=== PATIENT | female | born 1975 | race Caucasian/White ===

== ENCOUNTER 2022-06-13 15:24 | Inpatient (IN) ==
[2022-06-13 16:15] LABS: Basophils # (auto) 0.07 K/uL (0-0.2); Basophils % (auto) 0.7 %; Eosinophils # (auto) 0.26 K/uL (0-0.50); Eosinophils % (auto) 2.7 %; Hematocrit (blood only) 42.5 % (34.1-44.9); Hemoglobin 13.8 g/dl (12.0-16.0); Immature Granulocytes # (auto) 0.03 K/uL (0.00-0.02); Immature Granulocytes % (auto) 0.3 %; Lymphocytes # (auto) 2.79 K/uL (1.2-3.4); Lymphocytes % (auto) 29.4 %; Mean Corpuscular Hemoglobin 27.8 pg (25.0-34.0); Mean Corpuscular Hgb Conc 32.5 g/dL (32.0-36.0); Mean Corpuscular Volume 85.5 fL (80.0-100.0); Mean Platelet Volume 9.8 fL (9.4-12.3); Monocytes # (auto) 0.62 K/uL (0.24-0.82); Monocytes % (auto) 6.5 %; Neutrophils # (auto) 5.71 K/uL (1.4-6.5); Neutrophils % (auto) 60.4 %; Platelet Count 299 K/uL (130-400); RDW Coefficient of Variation 13.7 % (11.5-14.5); RDW Standard Deviation 42.5 fL (36.4-46.3); Red Blood Count 4.97 M/uL (3.93-5.22); White Blood Count 9.48 K/ul (4.8-10.8)
[2022-06-13 16:24] LABS: Appearance Urine Clear (Clear); Bilirubin Urine Negative (Negative); Blood Urine Negative (Negative); Color Urine Yellow; Glucose Urine UA Negative (Negative); Ketones Urine Negative (Negative); Leukocyte Esterase Urine Negative (Negative); Nitrite Urine Negative (Negative); Protein Urine Negative (Negative); Specific Gravity Urine 1.018 (1.000-1.030); Urobilinogen Urine Negative (Negative); pH Urine 7.5 (4.5-7.5)
[2022-06-13 16:33] LABS: Albumin Globulin Ratio 1.7 (0.9-2); Albumin Level 4.7 gm/dl (3.4-5.0); BUN Creatinine Ratio 15.9 (10-20); Bilirubin,Total 0.4 mg/dl (0.2-1.0); Calcium 9.6 mg/dl (8.5-10.1); Creatinine Clr Calc Pharmacy 99.7 ml/min; Est GFR (African American) 121.8 ml/min; Est GFR (Non-African American) 105.1 ml/min; Globulin 2.8 gm/dl (2.5-4.0); Potassium 3.4 mmol/L (3.5-5.1); Total Protein 7.5 gm/dl (6.0-8.3)
--- NOTE | 2022-06-13 17:00 | History & Physical Report ---
Date of Service June 13, 2022 Assessment & Plan (1) Appendicitis: Plan: This is a 47y F who was sent to the [facility] ED as referred by Dr. Noriega office with [facility] general surgery for abdominal pain. Patient has a history of acute appendicitis with aborted procedure due to inability to readily identify the appendix. She has been on abx since 05/16 without any meaningful improvement in her symptoms--> mostly RLQ pain with nausea/vomiting. Full history of events as noted above. Today in the ER WBC 9. Vitals are stable. Abdomen soft, non distended, with TTP in supra pubic and RLQ regions. Prior laparoscopic sites well healed without signs of infection. ER has ordered a repeat CT a/p for further evaluation. Regardless due to symptoms we will admit the patient for supportive care and give her some IV zosyn. Will consider proceeding with laparoscopic vs open appendectomy tomorrow. Okay for clears and NPO at midnight. History of Present Illness Primary Care Provider: Varinder Yusuf MD This is a 47y F who was sent to the [facility] ED as referred by Dr. Noriega office with [facility] general surgery for abdominal pain. The patient has a significant recent history of appendicitis found via CT scan ER at [place] 3 weeks ago. She was taken to the OR but the case was aborted due to intraop findings ?abscess vs unable to identify appendix? (we do not have op report at this time). She did not have any surgical drains in post operatively. She was subsequently transferred to [facility] for higher level of care where they admitted her for IV abx over the course of a few days and was discharged on a course of PO augmentin. She then came to our ER on 05/22 due to ongoing pain and at that time CT scan some inflammation surrounding the appendix noting subacute appendicitis (no perf or abscess noted). At this time she did not have an elevated WBC # and her abdominal exam without concerning findings and she was instructed to continue abx and follow up with [facility]. She was ultimately set up to see Dr. Naik as an outpatient where recommendations made to continue course of abx, let inflammation settle down, and consider outpt C-scope prior to consideration of further surgical intervention. Unfortunately she returned to our ER on 06/06 for diarrheal symptoms where CT scan was obtained and showed improved findings surrounding her appendix without evidence of abscess. Her abx where switched from augmentin to cipro/flagyl. Few days later she states over this past weekend she developed 10/10 pain similar to when she initially presented to [facility] deferred going to the ER at that time. The acute pain did subside and she was able to make it to her second f/u appt with Dr. Naik today. After evaluating the patient as she is still having considerable amount of pain and not seeming to make much progress she was asked to return to the ER again for evaluation. Patient denies any fevers/chills. Says she has been eating/drinking okay, but with occasional nausea/vomiting (last emesis was a few days ago). Continues with diarrhea. Currently rates her pain a 5/10 and says she just wants to feel better. Allergies Allergy/AdvReac Type Severity Reaction Status Date / Time No Known Allergies Allergy Mild Verified 06/13/22 17:43 Home Medications Medication Instructions Recorded Confirmed Type ciprofloxacin HCl 500 mg tablet 500 mg PO BID #14 tabs 06/06/22 Rx (Cipro) metronidazole 500 mg tablet 500 mg PO TID #21 tabs 06/06/22 Rx clotrimazole 10 mg ashlee 10 mg PO TID 06/13/22 06/13/22 History escitalopram oxalate 5 mg tablet 5 mg PO DAILY 06/13/22 06/13/22 History fluconazole 150 mg tablet 150 mg PO DIRECTED 06/13/22 06/13/22 History ketorolac 10 mg tablet 10 mg PO QID PRN Pain 06/13/22 06/13/22 History levonorgestrel 20 mcg/24 hours (8 20 mcg intrauterine CONTINOUS 06/13/2206/13 History yrs) 52 mg intrauterine device (Mirena) omeprazole 40 mg capsule,delayed 40 mg PO DAILYBB 06/13/22 06/13/22 History release ondansetron HCl 4 mg tablet 4 mg PO Q8H PRN NAUSEA/VOMITING 06/13/22 06/13/22 History phentermine 30 mg capsule 30 mg PO QAM 06/13/22 06/13/22 History Past Med/Surg History Social History Smoking Status: Never smoker Preferred Language: Sami Feels Safe at Home: Yes Review of Systems Constitutional: no fever and no chills Respiratory: no dyspnea Cardiovascular: no chest pain Gastrointestinal: + abdominal pain (rlq), + bloating, + nausea and + vomiting Physical Exam Physical Exam: awake/alert, no distress Constitutional: well developed and well nourished; no acute distress Respiratory: normal respiratory effort Gastrointestinal (Abdomen): Inspection/Auscultation: + abdominal surgical scar (laparoscopic scars); abdomen not distended Percussion/Palpation: + abdomen tender (ttp in supra-pubic and RLQ regions) and abdomen soft Results & Data Results & Data ([facility]) Vital Signs (Past 12 Hours) Vital Signs Temp Pulse Resp BP Pulse Ox O2 Del Method 06/13/22 15:31 36.6 C 90 16 125/60 99 Room Air Supervising Physician Co-Signing Physician Notes Dr. Landeros is in no acute distress and does not need urgent or emergent operative intervention She does have chronic right lower quadrant pain from likely history of appendicitis with a failed attempted laparoscopic appendectomy Dr. Naik has been following her and she has persistent pain and he felt she should come to the emergency room and have us evaluate her I think the best care would be for her to likely be admitted to the hospital and undergo a laparoscopic possible open appendectomy Hopefully this can be done tomorrow If her CAT scan shows something entirely different we will address that PG Care Time/CCT Total # of Minutes Spent Total Time Spent with Patient: Total time spent is greater than 50% in coordination of care (as documented) at patient's floor/unit and/or counseling patient: Coding Level of Care Code 53009 Initial Inpt Care Lvl 2 Diagnoses Appendicitis K37
[2022-06-13] MEDS ORDERED: OPTIRAY 350 100ml IV ONE (17:25)
--- NOTE | 2022-06-13 17:39 | CT Scan Report ---
ABDOMEN AND PELVIS CT WITH IV CONTRAST CT DOSE: 340.85 mGy.cm HISTORY: rt sided abd pain, hx phlegmon appendix TECHNIQUE: Multiaxial CT images of the abdomen and pelvis were performed following the use of intrave nous contrast. A dose lowering technique was utilized adhering to the principles of ALARA. COMPARISON STUDY: Abdomen and pelvis CT 06/06/2022 FINDINGS: The lung bases are clear. No pneumoperitoneum. No pneumatosis. No fractures within the visu alized osseous structures. The liver, gallbladder, spleen, adrenal glands, pancreas, and kidneys are unremarkable. The main portal vein is patent. No retroperitoneal lymphadenopathy. An intrauterine dev ice is unchanged in position and remains low lying. Normal bladder.. There is a 3 cm left ovarian cys t. No evidence for bowel obstruction. Small to moderate amount well-formed stool seen throughout the colon. There is again noted an enhancing and thick-walled appendix within the right lower quadrant wi th mild surrounding fat stranding and mild ileocolic lymphadenopathy. The appendix measures up to 1 c m in diameter. The adjacent fat stranding has slightly progressed from the 06/06/2022 study but improv ed from the 05/22/2022 study. No extraluminal gas or abscess to suggest a perforation at this time IMPRESSION: 1. Redemonstration of the thick-walled appendix measuring up to 1 in diameter. The adjacent fat stran ding has slightly progressed from 06/06/2022 study but improved from the 05/22/2022 study. Again, the findings favor an acute to subacute appendicitis. No perforation or abscess identified this time. 2. No evidence for bowel obstruction. 3. An intrauterine device is unchanged in position and remains low lying. ACT 112: Negative or not required by law. Electronically signed by: Domingo Mireles M.D. 06/13/2022 5:38 PM
--- NOTE | 2022-06-13 17:52 | Emergency Department Note ---
History of Present Illness General Chief complaint: Abdominal Pain Stated complaint: TROUBLE WITH APPENDIX Time Seen by Provider: 06/13/22 16:03 History of Present Illness Maximum Pain Intensity: 5 47-year-old female presents to the ED with a chief complaint of right lower quadrant abdominal pain. The patient had appendicitis on 05/16/2022. She was evaluated at [facility] and had a laparoscopic surgery but the appendix was not removed at that time due to an abscess. She was subsequently transferred to [facility] for IV antibiotics. The patient was subsequently discharged. She has been on antibiotics since. She is currently on Cipro and Flagyl, she believes. She saw Dr. Johnny Naik today for a second visit and was referred here for further evaluation and either admission for appendectomy or IV antibiotics. No vomiting or diarrhea. No other complaints. Home Medications Medication Instructions Recorded Confirmed Type ciprofloxacin HCl 500 mg tablet 500 mg PO BID #14 tabs 06/06/22 06/13/22 Rx (Cipro) metronidazole 500 mg tablet 500 mg PO TID #21 tabs 06/06/22 06/13/22 Rx clotrimazole 10 mg ashlee 10 mg PO TID 06/13/22 06/13/22 History escitalopram oxalate 5 mg tablet 5 mg PO DAILY 06/13/22 06/13/22 History fluconazole 150 mg tablet 150 mg PO DIRECTED 06/13/22 06/13/22 History ketorolac 10 mg tablet 10 mg PO QID PRN Pain 06/13/22 06/13/22 History levonorgestrel 20 mcg/24 hours (8 20 mcg intrauterine CONTINOUS 06/13/22 06/13/22 History yrs) 52 mg intrauterine device (Mirena) omeprazole 40 mg capsule,delayed 40 mg PO DAILYBB 06/13/22 06/13/22 History release ondansetron HCl 4 mg tablet 4 mg PO Q8H PRN NAUSEA/VOMITING 06/13/22 06/13/22 History phentermine 30 mg capsule 30 mg PO QAM 06/13/22 06/13/22 History Allergies Allergy/AdvReac Type Severity Reaction Status Date / Time No Known Allergies Allergy Mild Verified 06/13/22 17:43 Past Med/Surg History Social History Smoking Status: Never smoker Preferred Language: Polish Feels Safe at Home: Yes Review of Systems A total of 10 systems reviewed and were otherwise negative Physical Exam Vital Signs Vital Signs - 24 hr 06/13/22 15:31 Temperature 36.6 C Temperature Source Temporal Artery Scan Pulse Rate 90 Respiratory Rate 16 Respiratory Depth Normal Blood Pressure 125/60 Blood Pressure Mean 81 Pulse Oximetry 99 Oxygen Delivery Method Room Air Sepsis Recent Fever Within 48 Hours No Sepsis New/Unexplained Change in Mental Status No Sepsis Action Taken by Nursing No Action Required CONSTITUTIONAL/VITAL SIGNS: Reviewed / noted above. GENERAL: Non-toxic in appearance. INTEGUMENTARY: Warm, dry, and [place]. HEAD: Normocephalic. EYES: without scleral icterus or trauma. ENT/OROPHARYNX: clear and moist. LYMPHADENOPATHY/NECK: Is supple without lymphadenopathy or meningismus. RESPIRATORY: Clear to auscultation bilaterally. No increased work of breathing. CARDIOVASCULAR: Regular rate and rhythm. GI/ABDOMEN: Soft and tender right lower quadrant no organomegaly or pulsatile mass. EXTREMITIES: Warm and well perfused. BACK: No CVA tenderness. NEUROLOGICAL: Intact without focal deficits. PSYCHIATRIC: normal affect. MUSCULOSKELETAL: Normally developed with good muscle tone. TRIAGE NURSING DOCUMENTATION REVIEWED. Course Administered Medications Discontinued Medications Ioversol (Optiray 350 100ml) 82 ml IV ONCE ONE Stop: 06/13/22 17:26 Last Admin: 06/13/22 17: Dose: 82 ml Documented By: EROS Medical Decision Making Differential Diagnosis Differential includes appendicitis, abscess, perforation, other. Medical Records Attestation: I reviewed the patient's medical records. Home Medications Current Medication List: was personally reviewed by me Laboratory Data Attestation: I reviewed the patient's lab results. Result diagrams: 06/13/22 16:05 06/13/22 16:05 Lab Results 06/13/22 06/13/22 06/13/22 Range/Units 16:05 16:05 16:05 WBC 9.48 (4.8-10.8) K/ul RBC 4.97 (3.93-5.22) M/uL Hgb 13.8 (12.0-16.0) g/dl Hct 42.5 (34.1-44.9) % MCV 85.5 (80.0-100.0) fL MCH 27.8 (25.0-34.0) pg MCHC 32.5 (32.0-36.0) g/dL RDW Std Deviation 42.5 (36.4-46.3) fL RDW Coeff of Sonido 13.7 (11.5-14.5) % Plt Count 299 (130-400) K/uL MPV 9.8 (9.4-12.3) fL Immature Gran % (Auto) 0.3 % Neut % (Auto) 60.4 % Lymph % (Auto) 29.4 % [place] % (Auto) 6.5 % Eos % (Auto) 2.7 % Baso % (Auto) 0.7 % Neut # (Auto) 5.71 (1.4-6.5) K/uL Lymph # (Auto) 2.79 (1.2-3.4) K/uL [place] # (Auto) 0.62 (0.24-0.82) K/uL Eos # (Auto) 0.26 (0-0.50) K/uL Baso # (Auto) 0.07 (0-0.2) K/uL Immature Gran # (Auto) 0.03 H (0.00-0.02) K/uL Sodium 138 (136-145) mmol/L Potassium 3.4 L (3.5-5.1) mmol/L Chloride 103 (98-107) mmol/L Carbon Dioxide 30 (21-32) mmol/L Anion Gap 5 (3-11) BUN 11 (6-23) mg/dl Creatinine 0.69 (0.6-1.2) mg/dl Est Cr Clr Drug Dosing 99.7 ml/min Est GFR ( Amer) 121.8 ml/min Est GFR (Non-Af Amer) 105.1 ml/min BUN/Creatinine Ratio 15.9 (10-20) Glucose 94 (70-99(Fasting)) mg/dl Calcium 9.6 (8.5-10.1) mg/dl Total Bilirubin 0.4 (0.2-1.0) mg/dl AST 22 (13-39) U/L ALT 49 (7-52) U/L Alkaline Phosphatase 76 (34-104) U/L Total Protein 7.5 (6.0-8.3) gm/dl Albumin 4.7 (3.4-5.0) gm/dl Globulin 2.8 (2.5-4.0) gm/dl Albumin/Globulin Ratio 1.7 (0.9-2) Lipase 25 (11-82) U/L Urine Color Yellow Urine Appearance Clear (Clear) Urine pH 7.5 (4.5-7.5) Ur Specific Eleva 1.018 (1.000-1.030) Urine Protein Negative (Negative) Urine Glucose (UA) Negative (Negative) Urine Ketones Negative (Negative) Urine Blood Negative (Negative) Urine Nitrite Negative (Negative) Urine Bilirubin Negative (Negative) Urine Urobilinogen Negative (Negative) Ur Leukocyte Esterase Negative (Negative) Imaging Data Radiologist's Impression: Abdomen/Pelvis CT 06/13/22 16:[address] WITH IV CONTRAST CT DOSE: 340.85 mGy.cm HISTORY: rt sided abd pain, hx phlegmon appendix TECHNIQUE: Multiaxial CT images of the abdomen and pelvis were performed following the use of intravenous contrast. A dose lowering technique was utilized adhering to the principles of ALARA. COMPARISON STUDY: Abdomen and pelvis CT 06/06/2022 FINDINGS: The lung bases are clear. No pneumoperitoneum. No pneumatosis. No fractures within the visualized osseous structures. The liver, gallbladder, spleen, adrenal glands, pancreas, and kidneys are unremarkable. The main portal vein is patent. No retroperitoneal lymphadenopathy. An intrauterine device is unchanged in position and remains low lying. Normal bladder.. There is a 3 cm left ovarian cyst. No evidence for bowel obstruction. Small to moderate amount well-formed stool seen throughout the colon. There is again noted an enhancing and thick-walled appendix within the right lower quadrant with mild surrounding fat stranding and mild ileocolic lymphadenopathy. The appendix measures up to 1 cm in diameter. The adjacent fat stranding has slightly progressed from the 06/06/2022 study but improved from the 05/22/2022 study. No extraluminal gas or abscess to suggest a perforation at this time IMPRESSION: 1. Redemonstration of the thick-walled appendix measuring up to 1 in diameter. The adjacent fat stranding has slightly progressed from 06/06/2022 study but improved from the 05/22/2022 study. Again, the findings favor an acute to subacute appendicitis. No perforation or abscess identified this time. 2. No evidence for bowel obstruction. 3. An intrauterine device is unchanged in position and remains low lying. ACT 112: Negative or not required by law. Electronically signed by: Domingo Mireles M.D. 06/13/2022 5:38 PM MDM Narrative 47-year-old female presents for right lower quadrant abdominal pain status post appendicitis that was medically treated and not improving. CBC and chemistry panel today was unremarkable but her CT scan shows redemonstration of a subacute appendicitis. The patient was seen by Dr. Delacruz. She will be admitted for further inpatient evaluation. Impression & Plan Appendicitis Discharge Plan Visit Data Chief Complaint: Abdominal Pain Stated Complaint: TROUBLE WITH APPENDIX ED Provider: Fab Bryant Discharge Problem: Appendicitis Patient Disposition: Being Evaluated by Surgeon Forms Stand Alone Forms: [facility] Prescriptions Prescriptions: No Action metronidazole 500 mg tablet 500 mg PO TID Qty: 21 0RF Rx Instructions: STARTED 06/07/22 FOR 7 DAYS. ciprofloxacin HCl [Cipro] 500 mg tablet 500 mg PO BID Qty: 14 0RF Rx Instructions: STARTED 06/07/22 FOR 7 DAYS clotrimazole 10 mg ashlee 10 mg PO TID fluconazole 150 mg tablet 150 mg PO DIRECTED ondansetron HCl 4 mg tablet 4 mg PO Q8H PRN (Reason: NAUSEA/VOMITING) omeprazole 40 mg capsule,delayed release(DR/EC) 40 mg PO DAILYBB phentermine 30 mg capsule 30 mg PO QAM ketorolac 10 mg tablet 10 mg PO QID PRN (Reason: Pain) escitalopram oxalate 5 mg tablet 5 mg PO DAILY Mirena 20 mcg/24 hours (8 yrs) 52 mg Intrauterine Device 20 mcg INTRAUTERINE CONTINOUS Referrals Referrals: Varinder Yusuf MD [Primary Care Provider] -
--- NOTE | 2022-06-13 20:11 | Anesthesiology Consultation ---
Date of Service June 13, 2022 Assessment & Plan (1) Encounter for pre-operative examination: Chart Review Chart Review: entry tech initiated History Surgery Operation Date: 06/14/22 07:00 Proposed Procedures p Laparoscopic Possible Open Appendectomy - Michele Delacruz MD, FACS Height/Weight Height: 5 ft 3 in Weight: 74.7 kg Allergies Allergy/AdvReac Type Severity Reaction Status Date / Time No Known Allergies Allergy Mild Verified 06/13/22 17:43 Medications Home Medications Medication Instructions Recorded Confirmed Last Taken ciprofloxacin HCl 500 mg tablet 500 mg PO BID #14 tabs 06/06/22 06/13/22 06/13/22 08:00 (Cipro) metronidazole 500 mg tablet 500 mg PO TID #21 tabs 06/06/22 06/13/22 06/13/22 08:00 clotrimazole 10 mg ashlee 10 mg PO TID 06/13/22 06/13/22 06/13/22 08:00 escitalopram oxalate 5 mg tablet 5 mg PO DAILY 06/13/22 06/13/22 06/13/22 fluconazole 150 mg tablet 150 mg PO DIRECTED 06/13/22 06/13/22 Unknown ketorolac 10 mg tablet 10 mg PO QID PRN Pain 06/13/22 06/13/22 Unknown levonorgestrel 20 mcg/24 hours (8 20 mcg intrauterine CONTINOUS 06/13/22 06/13/22 Unknown yrs) 52 mg intrauterine device (Mirena) omeprazole 40 mg capsule,delayed 40 mg PO DAILYBB 06/13/22 06/13/22 06/13/22 release ondansetron HCl 4 mg tablet 4 mg PO Q8H PRN NAUSEA/VOMITING 06/13/22 06/13/22 Unknown phentermine 30 mg capsule 30 mg PO QAM 06/13/22 06/13/22 06/13/22 Social History Smoking Status: Never smoker Physical Exam Vital Signs Last Vital Signs Temp 97.9 F 06/13/22 15:31 Pulse 81 06/13/22 18:27 Resp 18 06/13/22 17:25 BP 112/70 06/13/22 18:27 Pulse Ox 98 06/13/22 18:27 O2 Del Method 06/13/22 18:27 Testing Laboratory Results 06/13/22 16:05 06/13/22 16:05 Urine Color Yellow 06/13/22 16:05 Urine Appearance Clear (Clear) 06/13/22 16:05 Urine pH 7.5 (4.5-7.5) 06/13/22 16:05 Ur Specific Leon 1.018 (1.000-1.030) 06/13/22 16:05 Urine Protein Negative (Negative) 06/13/22 16:05 Urine Glucose (UA) Negative (Negative) 06/13/22 16:05 Urine Ketones Negative (Negative) 06/13/22 16:05 Urine Nitrite Negative (Negative) 06/13/22 16:05 Ur Leukocyte Esterase Negative (Negative) 06/13/22 16:05 Electrocardiogram Date: 06/06/22 Poor data quality, interpretation may be adversely affected Normal sinus rhythm, rate 76 bpm Low voltage QRS Borderline ECG No previous ECGs available Confirmed by Tom Morales ([id number]) on 06/07/2022 4:15:21 PM
[2022-06-13] MEDS ORDERED: MoRPHine SULFATE 4 MG/ML 1 ML CARP\\VIAL IV PRN (20:18)
[2022-06-13] MEDS ORDERED: PIPERACILLIN/TAZOBACTAM 3.375 GM in DEXTROSE 5% 100 ML IV ONE (20:30)
[2022-06-13] MEDS ORDERED: BUPROPION 100 MG PO SCH (21:00)
[2022-06-13] MEDS: SODIUM CHLORIDE 0.9% 1000ML 1,000 ML IV SCH (21:01)
[2022-06-13 21:20] LABS: Pregnancy Test, Serum Negative (Negative)
[2022-06-13] MEDS: ONDANSETRON INJ 2 MG/ML 2 ML VIAL IV PRN (22:29)
[2022-06-13] MEDS: MoRPHine SULFATE 2 MG/ML CARP IV PRN ×2 (22:30→23:36)
[2022-06-14] MEDS: PIPERACILLIN/TAZOBACTAM 3.375 GM in DEXTROSE 5% 100 ML IV SCH ×3 (02:39→18:21)
--- NOTE | 2022-06-14 06:22 | History & Physical Bridge Note ---
Date of Service June 14, 2022 History & Physical Bridge Note I have examined the patient, reviewed the History & Physical and in the interval since the performance of the History & Physical I have noted the following changes of clinical significance: no changes noted
[2022-06-14] MEDS: SODIUM CHLORIDE 0.9% 1000ML 1,000 ML IV SCH (06:30)
[2022-06-14 06:52] LABS: Basophils # (auto) 0.07 K/uL (0-0.2); Basophils % (auto) 0.6 %; Eosinophils # (auto) 0.29 K/uL (0-0.50); Eosinophils % (auto) 2.7 %; Hematocrit (blood only) 38.3 % (34.1-44.9); Immature Granulocytes # (auto) 0.05 K/uL (0.00-0.02); Immature Granulocytes % (auto) 0.5 %; Lymphocytes # (auto) 3.53 K/uL (1.2-3.4); Lymphocytes % (auto) 32.6 %; Mean Corpuscular Hemoglobin 28.4 pg (25.0-34.0); Mean Corpuscular Hgb Conc 33.9 g/dL (32.0-36.0); Mean Corpuscular Volume 83.6 fL (80.0-100.0); Mean Platelet Volume 10.1 fL (9.4-12.3); Monocytes # (auto) 0.79 K/uL (0.24-0.82); Monocytes % (auto) 7.3 %; Neutrophils # (auto) 6.09 K/uL (1.4-6.5); Neutrophils % (auto) 56.3 %; Platelet Count 273 K/uL (130-400); RDW Coefficient of Variation 13.7 % (11.5-14.5); RDW Standard Deviation 42.1 fL (36.4-46.3); Red Blood Count 4.58 M/uL (3.93-5.22); White Blood Count 10.82 K/ul (4.8-10.8)
[2022-06-14 07:20] LABS: BUN Creatinine Ratio 18.8 (10-20); Calcium 8.8 mg/dl (8.5-10.1); Creatinine Clr Calc Pharmacy 85.1 ml/min; Est GFR (African American) 103.2 ml/min; Potassium 3.6 mmol/L (3.5-5.1)
[2022-06-14] MEDS ORDERED: ONDANSETRON INJ 2 MG/ML 2 ML VIAL IV STA (08:38)
[2022-06-14] MEDS: ONDANSETRON INJ 2 MG/ML 2 ML VIAL IV PRN ×2 (08:42→13:07)
[2022-06-14] MEDS ORDERED: fentaNYL citrate 100 MCG/2 ML VIAL ONE ×3 (08:47→12:07)
[2022-06-14] MEDS ORDERED: BUPIVACAINE 0.5 % 5 MG/1 ML MPF 30ML VIAL ONE (10:20)
[2022-06-14] MEDS ORDERED: ROCURONIUM BROMIDE 10 MG/ML 5 ML VIAL IV ONE (10:57)
[2022-06-14] MEDS ORDERED: DEXAMETHASONE SOD INJ 4 MG/ML VIAL ONE (10:57)
[2022-06-14] MEDS ORDERED: ONDANSETRON INJ 2 MG/ML 2 ML VIAL ONE (10:57)
[2022-06-14] MEDS ORDERED: PROPOFOL IV EMULSION 10 MG/ML 20 ML VIAL IV ONE (10:57)
[2022-06-14] MEDS ORDERED: GLYCOPYRROLATE 0.2 MG/ML VIAL ONE (10:58)
[2022-06-14] MEDS ORDERED: NEOSTIGMINE METHYLSULFATE 1 MG/ML 10ML VIAL ONE (10:58)
[2022-06-14] MEDS ORDERED: ACETAMINOPHEN 1,000 MG/100 ML VIAL IV ONE (11:53)
--- NOTE | 2022-06-14 11:53 | Post Operative Brief Note ---
PG Immediate Post Op with CF Date of Surgery June 14, 2022 Pre & Post Diagnosis Operation Date: 06/14/22 07:00 Pre-Op Diagnosis: Appendicitis Post-Op Diagnosis: Appendicitis I identified the patient and participated in the time-out.: Yes Procedure Operation Date: 06/14/22 07:00 Actual Procedures p Laparoscopic Appendectomy(Not Applicable) - Michele Delacruz MD, FACS Surgeon Michele Delacruz MD, FACS Bonding Machine Operator Dr. Myers Estimated Blood Loss 10 Findings Consistent with Post-Op Diagnosis Chronically thickened appendix and mesentery No abscess noted Specimens Specimen Description: A. appendix Drains Greer Catheter and Billy-Cervantes Drain (15french)
[2022-06-14] MEDS ORDERED: ePHEDrine sulfate 50 MG/ML AMP IV PRN (12:08)
[2022-06-14] MEDS ORDERED: HYDROmorphone INJ 2 MG/ML SYR/VIAL IV PRN (12:08)
[2022-06-14] MEDS ORDERED: ONDANSETRON INJ 2 MG/ML 2 ML VIAL IV PRN (12:08)
[2022-06-14] MEDS ORDERED: ATROPINE SULFATE 0.1 MG/ML 10ML SYR IV PRN (12:08)
[2022-06-14] MEDS: fentaNYL citrate 100 MCG/2 ML VIAL IV PRN ×3 (12:09→12:19)
--- NOTE | 2022-06-14 12:52 | Anesthesiology Progress Note ---
Date of Service June 14, 2022 Anesthesia Post Procedure Vital Signs Vital Signs: Temp Pulse Pulse Pulse Resp BP BP 06/14/22 12:20 70 12 119/65 06/14/22 12:10 72 16 117/62 06/14/22 12:35 78 16 108/64 06/14/22 12:32 36.1 C L 77 16 116/63 06/14/22 12:00 36 C L 76 16 108/60 06/14/22 08:51 36.5 C 83 18 111/75 06/14/22 07:55 36.4 C L 87 17 102/71 06/13/22 20:28 36.8 C 78 18 95/62 L 06/13/22 18:27 81 112/70 06/13/22 17:25 82 18 06/13/22 15:31 36.6 C 90 16 125/60 Pulse Ox O2 Del Method O2 Flow Rate 06/14/22 12:20 100 Oxymask 8 06/14/22 12:10 100 Oxymask 8 06/14/22 12:35 99 Nasal Cannula 2 06/14/22 12:32 100 Nasal Cannula 2 06/14/22 12:00 100 Oxymask 8 06/14/22 08:51 96 Room Air 06/14/22 07:55 96 Room Air 06/13/22 20:28 97 Room Air 06/13/22 18:27 98 Room Air 06/13/22 17:25 97 06/13/22 15:31 99 Room Air Pain Intensity Right Abdomen: Pain Intensity: 0 Abdomen: Pain Intensity: 4 Transfer of Care Handoff Completed per policy Notes Mental Status: alert / awake / arousable and participated in evaluation Patient Amnestic to Procedure: Yes Nausea / Vomiting: adequately controlled Pain: adequately controlled Airway Patency, RR, SpO2: stable & adequate BP & HR: stable & adequate Hydration State: stable & adequate Anesthetic Complications: no major complications apparent and Pt Satisfied with anesthetic care
[2022-06-14] MEDS ORDERED: PIPERACILLIN/TAZOBACTAM 3.375 GM in DEXTROSE 5% 100 ML IV SCH (12:53)
[2022-06-14] MEDS ORDERED: HYDROmorphone INJ 0.5 MG/0.5 ML SYR IV PRN (12:53)
[2022-06-14] MEDS ORDERED: oxyCODONE HCL IR 5 MG TAB (IMMEDIATE RELEASE) PO PRN (12:53)
[2022-06-14] MEDS: HYDROmorphone INJ 0.5 MG/0.5 ML SYR IV PRN (13:07)
[2022-06-14 13:15] LABS: Basophils # (auto) 0.05 K/uL (0-0.2); Basophils % (auto) 0.4 %; Eosinophils # (auto) 0.06 K/uL (0-0.50); Eosinophils % (auto) 0.5 %; Hematocrit (blood only) 39.7 % (34.1-44.9); Hemoglobin 13.1 g/dl (12.0-16.0); Immature Granulocytes # (auto) 0.05 K/uL (0.00-0.02); Immature Granulocytes % (auto) 0.4 %; Lymphocytes # (auto) 1.87 K/uL (1.2-3.4); Lymphocytes % (auto) 16.4 %; Mean Corpuscular Hemoglobin 28.4 pg (25.0-34.0); Mean Corpuscular Volume 86.1 fL (80.0-100.0); Mean Platelet Volume 9.9 fL (9.4-12.3); Monocytes # (auto) 0.27 K/uL (0.24-0.82); Monocytes % (auto) 2.4 %; Neutrophils # (auto) 9.08 K/uL (1.4-6.5); Neutrophils % (auto) 79.9 %; Platelet Count 244 K/uL (130-400); RDW Coefficient of Variation 13.6 % (11.5-14.5); RDW Standard Deviation 42.7 fL (36.4-46.3); Red Blood Count 4.61 M/uL (3.93-5.22); White Blood Count 11.38 K/ul (4.8-10.8)
--- NOTE | 2022-06-14 13:25 | Operative Report (OR) ---
DATE OF OPERATION: 06/14/2022. NAME OF OPERATION: Laparoscopic appendectomy. PREOPERATIVE DIAGNOSIS: Acute appendicitis. POSTOPERATIVE DIAGNOSIS: Acute appendicitis. STAFF SURGEON: Michele Delacruz MD. SECURITY SOLUTIONS ARCHITECT: Cheng Myers MD. DESCRIPTION OF PROCEDURE: The patient was brought in the operating room and placed on the operating table in supine position. Greer catheter was placed. Orogastric tube was placed. Her abdomen was p repped and draped in the usual fashion. A 0.5% plain Marcaine was used to anesthetize all incisions. An incision was made just on the upper part of the umbilicus below her piercing, carrying dissectio n down to the fascia, placing a Veress needle, producing pneumoperitoneum. An 11 mm port placed at t his level and under visualization, a 5 mm port placed suprapubically and a 12 mm port placed in left lower quadrant. On inspection and reflection of the cecum and small bowel, we were able to find the appendix. It was medial on the cecum and a very thick and inflamed. There was no surrounding absces s. The base was relatively thick. We were able to gradually work through the mesentery, which was v ban scarred as she did have appendicitis a month ago. The patient has been having persistent pain. We were able to clip the mesentery and 2 separate segments with a 10 mm clipper. The base of the dhruv endix was somewhat thick, but we were able to place a purple load 45 stapler across the base with a g ood staple line. The appendix was then placed in an Endobag and removed through the left lower quadr ant port site. After appropriate irrigation, we did feel it was appropriate with the patient's chron ic symptoms and chronic history of appendicitis to place a drain through the 5 mm port site into the right lower quadrant and pelvis. It was a 15 round Billy-Cervantes drain secured using 3-0 nylon sutur e. After appropriate irrigation and hemostasis, all ports were removed. Fascia at the umbilicus and left lower quadrant closed using 0 PDS suture. Subcutaneous tissue reapproximated using 2-0 plain s uture. The skin at the umbilicus closed using 5-0 Prolene suture. Left lower quadrant, subcuticular 4-0 Monocryl and Steri-Strips. The patient was transferred to recovery room in stable condition. D rain was placed to suction bulb. My orthotics prosthetics assistant helped with prepping, draping, removal of the appendix and closure of the wounds. Job ID: [id number]
[2022-06-14 13:40] LABS: Albumin Globulin Ratio 1.6 (0.9-2); Albumin Level 4.1 gm/dl (3.4-5.0); Bilirubin,Total 0.5 mg/dl (0.2-1.0); Calcium 8.5 mg/dl (8.5-10.1); Creatinine Clr Calc Pharmacy 85.1 ml/min; Est GFR (African American) 103.2 ml/min; Globulin 2.6 gm/dl (2.5-4.0); Phosphorus 2.5 mg/dl (2.5-4.9); Potassium 4.1 mmol/L (3.5-5.1); Total Protein 6.7 gm/dl (6.0-8.3)
[2022-06-14] MEDS: LACTATED RINGER'S 1,000 ML IV SCH (14:26)
[2022-06-14] MEDS: PROMETHAZINE HCL 12.5 MG in SODIUM CHLORIDE 0.9% 50 ML IV PRN (14:56)
[2022-06-14] MEDS: oxyCODONE HCL IR 5 MG TAB (IMMEDIATE RELEASE) PO PRN ×2 (17:19→21:40)
[2022-06-15] MEDS: HYDROmorphone INJ 0.5 MG/0.5 ML SYR IV PRN (00:33)
[2022-06-15] MEDS: LACTATED RINGER'S 1,000 ML IV SCH ×2 (01:43→13:34)
[2022-06-15] MEDS: PIPERACILLIN/TAZOBACTAM 3.375 GM in DEXTROSE 5% 100 ML IV SCH ×3 (02:16→17:38)
[2022-06-15] MEDS: oxyCODONE HCL IR 5 MG TAB (IMMEDIATE RELEASE) PO PRN ×5 (02:21→21:27)
--- NOTE | 2022-06-15 07:47 | Surgery Progress Note ---
Date of Service June 15, 2022 Assessment & Plan (1) History of laparoscopic appendectomy: Plan: Postoperative day #1 Doing as expected Would like more to eat so we will advance to full liquids. Keep ALBERTO for now. Continue IV antibiotics. Admission and Anticipated Discharge Date Admission Date: June 13, 2022 Subjective Patient seen. Having some surgical discomfort in the right lower quadrant but overall feeling better than yesterday. Her abdominal distention and nausea resolved since prior to surgery. Tolerating clear liquids. Physical Exam Physical Exam: Alert. No acute distress Abdomen soft with expected tenderness. ALBERTO with scant amount of serous fluid. Results & Data ([facility]) Vital Signs (Past 12 Hours) Vital Signs Temp Pulse Resp BP Pulse Ox O2 Del Method 06/15/22 07:21 36.8 C 89 14 94/54 L 95 Room Air 06/15/22 03:57 36.8 C 93 H 18 104/65 96 Room Air 06/15/22 03:17 36.9 C 87 18 97/59 L 96 Room Air 06/15/22 02:35 36.8 C 87 18 99/58 L 94 Room Air 06/14/22 22:32 36.6 C 85 18 106/68 96 Room Air 06/14/22 21:31 36.7 C 88 18 100/61 96 Room Air PG Care Time/CCT Total # of Minutes Spent Total Time Spent with Patient: Total time spent is greater than 50% in coordination of care (as documented) at patient's floor/unit and/or counseling patient: Coding Level of Care Code None Diagnoses History of laparoscopic appendectomy Z90.49
[2022-06-15] MEDS: HEPARIN SOD 5,000 UNIT/0.5 ML VIAL SQ SCH ×2 (10:00→21:26)
[2022-06-15] MEDS: ACETAMINOPHEN 325 MG TAB PO PRN (13:32)
[2022-06-15] MEDS ORDERED: ZOLPIDEM TARTRATE 10 MG TAB PO PRN (18:55)
[2022-06-15] MEDS: ONDANSETRON INJ 2 MG/ML 2 ML VIAL IV PRN (19:09)
[2022-06-16] MEDS: LACTATED RINGER'S 1,000 ML IV SCH ×2 (01:48→14:31)
[2022-06-16] MEDS: PIPERACILLIN/TAZOBACTAM 3.375 GM in DEXTROSE 5% 100 ML IV SCH ×3 (02:33→18:25)
--- NOTE | 2022-06-16 07:19 | Surgery Progress Note ---
Date of Service June 16, 2022 Assessment & Plan (1) Appendicitis: Plan: Status post laparoscopic appendectomy on 06/14/2022 (postop day #2) Continue analgesics Continue antiemetics Continue full liquids for the present time with plans to advance with further improvement of bowel function Continue IV fluids until oral intake is advanced further Continue ALBERTO drain to bulb suction Check a.m. labs when available Continue antibiotics in the form of Zosyn while hospitalized Continue mobilization as able Subcu heparin is in place for DVT prevention as above. some generalized malaise this am. tim fulls. no nausea. fatigue. wbc improved. afebrile. ALBERTO looks good will advance diet today. not ready for d/c cont antibiotics. Admission and Anticipated Discharge Date Admission Date: June 15, 2022 Subjective Patient is resting comfortably in bed. She notes that her abdominal pain is markedly improved since her surgery. She denies any nausea or vomiting. She denies any cough or shortness of breath. She notes that she is passing some flatus but has not had a bowel movement since surgery. She offers no additional complaints at this time. Physical Exam Gastrointestinal (Abdomen): Abdomen is soft and nondistended. Incisions are clean, dry, intact. ALBERTO drain is in place with some serous fluid. It appears to have drained approximately 50 cc over the last 24 hours. Appropriate tenderness noted near surgical incisions. Results & Data ([facility]) Vital Signs (Past 12 Hours) Vital Signs Temp Pulse Resp BP Pulse Ox O2 Del Method 06/15/22 21:46 36.6 C 69 16 110/70 97 Room Air PG Care Time/CCT Total # of Minutes Spent Total Time Spent with Patient: Total time spent is greater than 50% in coordination of care (as documented) at patient's floor/unit and/or counseling patient: Coding Level of Care Code None Diagnoses Appendicitis K37
[2022-06-16 07:43] LABS: Basophils # (auto) 0.05 K/uL (0-0.2); Basophils % (auto) 0.5 %; Hematocrit (blood only) 34.7 % (34.1-44.9); Hemoglobin 11.5 g/dl (12.0-16.0); Immature Granulocytes # (auto) 0.05 K/uL (0.00-0.02); Immature Granulocytes % (auto) 0.5 %; Lymphocytes # (auto) 3.73 K/uL (1.2-3.4); Lymphocytes % (auto) 35.8 %; Mean Corpuscular Hgb Conc 33.1 g/dL (32.0-36.0); Mean Corpuscular Volume 84.4 fL (80.0-100.0); Monocytes # (auto) 0.55 K/uL (0.24-0.82); Monocytes % (auto) 5.3 %; Neutrophils # (auto) 5.94 K/uL (1.4-6.5); Neutrophils % (auto) 56.9 %; Platelet Count 233 K/uL (130-400); RDW Coefficient of Variation 13.7 % (11.5-14.5); RDW Standard Deviation 42.5 fL (36.4-46.3); Red Blood Count 4.11 M/uL (3.93-5.22); White Blood Count 10.42 K/ul (4.8-10.8)
[2022-06-16] MEDS: oxyCODONE HCL IR 5 MG TAB (IMMEDIATE RELEASE) PO PRN ×2 (10:09→21:28)
[2022-06-16] MEDS: ONDANSETRON INJ 2 MG/ML 2 ML VIAL IV PRN ×2 (10:10→18:39)
[2022-06-16] MEDS: HEPARIN SOD 5,000 UNIT/0.5 ML VIAL SQ SCH ×2 (10:10→20:42)
[2022-06-16] MEDS: ACETAMINOPHEN 325 MG TAB PO PRN ×2 (12:33→18:39)
[2022-06-16] MEDS: PROMETHAZINE HCL 12.5 MG in SODIUM CHLORIDE 0.9% 50 ML IV PRN (14:31)
[2022-06-16] MEDS: ZOLPIDEM TARTRATE 5 MG TAB PO PRN (21:29)
[2022-06-17] MEDS: LACTATED RINGER'S 1,000 ML IV SCH (02:27)
[2022-06-17] MEDS: PIPERACILLIN/TAZOBACTAM 3.375 GM in DEXTROSE 5% 100 ML IV SCH ×3 (02:27→18:22)
--- NOTE | 2022-06-17 05:51 | Surgery Progress Note ---
Date of Service June 17, 2022 Assessment & Plan (1) Appendicitis: Plan: Status post laparoscopic appendectomy on 06/14/2022 (postop day #3) Continue analgesics Continue antiemetics Continue diet as tolerated Continue ALBERTO drain to bulb suction Check a.m. labs when available Continue antibiotics in the form of Zosyn while hospitalized Continue mobilization Subcu heparin is in place for DVT prevention . As above. The patient appears to have finally turned the corner. Chest x-ray was negative. If she does well today we will potentially be discharged tomorrow. Admission and Anticipated Discharge Date Admission Date: June 15, 2022 Subjective Patient is resting comfortably in bed. As noted previously her abdominal pain has markedly improved since her surgery. She denies any nausea or vomiting and has tolerated advancement of her diet to solid food. Physical Exam Gastrointestinal (Abdomen): Abdomen is soft, nondistended, with minimal pain noted with palpation. ALBERTO drain is in place draining serous fluid. 30 cc r ecorded over the last 24 hours. Results & Data ([facility]) Vital Signs (Past 12 Hours) Vital Signs Temp Pulse Resp BP Pulse Ox Pulse Ox O2 Del Method 06/16/22 22:43 36.8 C 74 18 109/70 96 Room Air 06/16/22 20:00 98 O2 Del Method 06/16/22 22:43 06/16/22 20:00 Room Air PG Care Time/CCT Total # of Minutes Spent Total Time Spent with Patient: Total time spent is greater than 50% in coordination of care (as documented) at patient's floor/unit and/or counseling patient: Coding Level of Care Code None Diagnoses Appendicitis K37
[2022-06-17] MEDS: oxyCODONE HCL IR 5 MG TAB (IMMEDIATE RELEASE) PO PRN ×3 (06:17→21:59)
--- NOTE | 2022-06-17 06:20 | XRay Report ---
XR chest 2V PA/lateral CLINICAL HISTORY: Hemoptysis. COMPARISON STUDY: No previous studies for comparison. FINDINGS: Lung volumes are normal. Lungs are clear. Blunting of left costophrenic angle suggests a tr gurvinder left pleural effusion. Cardiac size is normal. Mediastinal contours are normal. There is no evide nce for pulmonary edema. IMPRESSION: Trace left pleural effusion. ACT 112: Negative or not required by law. Electronically signed by: Trevin Santos M.D. 06/17/2022 6:19 AM
[2022-06-17 09:27] LABS: Basophils # (auto) 0.07 K/uL (0-0.2); Basophils % (auto) 0.8 %; Eosinophils # (auto) 0.29 K/uL (0-0.50); Eosinophils % (auto) 3.4 %; Hematocrit (blood only) 36.6 % (34.1-44.9); Immature Granulocytes # (auto) 0.03 K/uL (0.00-0.02); Immature Granulocytes % (auto) 0.4 %; Lymphocytes # (auto) 3.84 K/uL (1.2-3.4); Lymphocytes % (auto) 44.9 %; Mean Corpuscular Hgb Conc 32.8 g/dL (32.0-36.0); Mean Corpuscular Volume 85.5 fL (80.0-100.0); Mean Platelet Volume 10.2 fL (9.4-12.3); Monocytes # (auto) 0.63 K/uL (0.24-0.82); Monocytes % (auto) 7.4 %; Neutrophils % (auto) 43.1 %; Platelet Count 239 K/uL (130-400); RDW Coefficient of Variation 13.5 % (11.5-14.5); RDW Standard Deviation 42.3 fL (36.4-46.3); Red Blood Count 4.28 M/uL (3.93-5.22); White Blood Count 8.56 K/ul (4.8-10.8)
[2022-06-17] MEDS: HEPARIN SOD 5,000 UNIT/0.5 ML VIAL SQ SCH ×2 (10:00→21:51)
[2022-06-17] MEDS: ACETAMINOPHEN 325 MG TAB PO PRN ×2 (10:00→18:21)
[2022-06-17] MEDS: ONDANSETRON INJ 2 MG/ML 2 ML VIAL IV PRN ×2 (13:43→18:43)
[2022-06-17] MEDS: PROMETHAZINE HCL 12.5 MG in SODIUM CHLORIDE 0.9% 50 ML IV PRN (21:51)
--- NOTE | 2022-06-17 21:51 | Communication Note ---
Date of Service: June 17, 2022 I was contacted by RN at approximate 9:35 PM this evening due to concern that patient complained of nausea without emesis along with some lightheadedness. I visited with the patient within 10 minutes of this notification. The patient feels as though the symptoms only present when she is administered the antibiotic Zosyn. She notes that her bowels are still moving (they are loose but not watery). She continues to tolerate solid food. She denies any fevers, shakes, or chills. She denies any worsening abdominal pain. I visited with the patient at bedside. Subjective data is listed above. Patient's vital signs were checked upon my arrival and she was noted to have a blood pressure of 102/65 with a pulse of 78 and regular. Respirations are 16 and unlabored and she was afebrile with temperature 36.7. Pulse ox was 95% on room air. Her respirations did not appear labored. On abdominal exam her abdomen is soft, nonrigid, and nondistended. There is no tympany to percussion. There is minimal pain with palpation. The patient is able to move all 4 extremities and follows simple commands. Her speech is coherent. No neurologic deficits are noted. It is possible that patient may be experiencing a side effect related to administration of the antibiotic in question. The patient is currently hemodynamically stable with a benign exam. We will continue to monitor her closely.
[2022-06-17] MEDS: ZOLPIDEM TARTRATE 5 MG TAB PO PRN (21:59)
--- NOTE | 2022-06-17 23:10 | Communication Note ---
Date of Service: June 17, 2022 Please see previous note regarding patient concerns of Zosyn causing dizziness and nausea. I discussed this with the attending physician he feels that his patient may potentially be discharged tomorrow we can discontinue Zosyn and switch to an oral antibiotic. Therefore, I have discontinued Zosyn and add switched antibiotic to oral Augmentin.
[2022-06-18] MEDS: oxyCODONE HCL IR 5 MG TAB (IMMEDIATE RELEASE) PO PRN ×2 (06:36→10:49)
[2022-06-18] MEDS ORDERED: AMOXICILLIN/CLAVULANATE 875 MG TAB PO SCH (08:00)
[2022-06-18] MEDS: HEPARIN SOD 5,000 UNIT/0.5 ML VIAL SQ SCH (09:27)
--- NOTE | 2022-06-18 09:39 | Surgery Progress Note ---
Date of Service June 18, 2022 Assessment & Plan (1) History of laparoscopic appendectomy: Plan: POD#4 post laparoscopic appendectomy She is tolerating a diet. No bouts of emesis. + flatus and BMs Mild nausea she believes correlating with her IV antibiotic administration, this has been transitioned Denies further lightheadedness this AM ALBERTO drain serosag, will remove Will plan on discharge to home today with support F/u in clinic with Dr. Delacruz in 2 weeks, dispo instructions reviewed. will send out on some po abx Admission and Anticipated Discharge Date Admission Date: June 15, 2022 Subjective Patient is feeling better. Denies any light headedness this AM. Tolerating a diet, ate breakfast this morning without issues. Some mild nausea she believes related to the Zosyn, but no emesis and symptoms not worsening. Incisional pain present, but manageable on po medications. She states she feels ready to go home Physical Exam Physical Exam: awake/alert, no distress Gastrointestinal (Abdomen): Inspection/Auscultation: + abdominal surgical incision (c/d/i) and + abdominal surgical drain present (serosang.); abdomen not distended Percussion/Palpation: + abdomen tender (phong incisional discomfort to palpation ) and abdomen soft Results & Data ([facility]) Vital Signs (Past 12 Hours) Vital Signs Temp Pulse Resp BP Pulse Ox O2 Del Method 06/18/22 08:36 37.0 C 84 16 100/63 95 Room Air 06/18/22 07:53 36.9 C 73 14 98/62 L 95 Room Air 06/17/22 21:46 36.7 C 78 16 102/65 95 Room Air PG Care Time/CCT Total # of Minutes Spent Total Time Spent with Patient: Total time spent is greater than 50% in coordination of care (as documented) at patient's floor/unit and/or counseling patient: Coding Level of Care Code None Diagnoses History of laparoscopic appendectomy Z90.49
--- NOTE | 2022-06-19 12:11 | Discharge Summary ---
Date of Service June 18, 2022 Admission HPI Per Admitting Provider This is a 47y F who was sent to the [facility] ED as referred by Dr. Noriega office with [facility] for abdominal pain. The patient has a significant recent history of appendicitis found via CT scan ER at [place] 3 weeks ago. She was taken to the OR but the case was aborted due to intraop findings ?abscess vs unable to identify appendix? (we do not have op report at this time). She did not have any surgical drains in post operatively. She was subsequently transferred to [facility] for higher level of care where they admitted her for IV abx over the course of a few days and was discharged on a course of PO augmentin. She then came to our ER on 05/22 due to ongoing pain and at that time CT scan some inflammation surrounding the appendix noting subacute appendicitis (no perf or abscess noted). At this time she did not have an elevated WBC # and her abdominal exam without concerning findings and she was instructed to continue abx and follow up with [facility]. She was ultimately set up to see Dr. Naik as an outpatient where recommendations made to continue course of abx, let inflammation settle down, and consider outpt C-scope prior to consideration of further surgical intervention. Unfortunately she returned to our ER on 06/06 for diarrheal symptoms where CT scan was obtained and showed improved findings surrounding her appendix without evidence of abscess. Her abx where switched from augmentin to cipro/flagyl. Few days later she states over this past weekend she developed 10/10 pain similar to when she initially presented to [facility], however deferred going to the ER at that time. The acute pain did subside and she was able to make it to her second f/u appt with Dr. Naik today. After evaluating the patient as she is still having considerable amount of pain and not seeming to make much progress she was asked to return to the ER again for evaluation. Patient denies any fevers/chills. Says she has been eating/drinking okay, but with occasional nausea/vomiting (last emesis was a few days ago). Continues with diarrhea. Currently rates her pain a 5/10 and says she just wants to feel better. Principal Diagnosis appendicitis Discharge Exam Constitutional well developed and well nourished; no acute distress Respiratory normal respiratory effort Gastrointestinal (Abdomen) Inspection/Auscultation: + abdominal surgical incision (c/d/i) and + abdominal surgical drain present (serosang.); abdomen not distended Percussion/Palpation: + abdomen tender (phong incisional discomfort to palpation ) and abdomen soft Discharge Data Allergies Allergy/AdvReac Type Severity Reaction Status Date / Time No Known Allergies Allergy Mild Verified 06/13/22 17:43 Procedures Performed Operation Date: 06/14/22 07:00 Actual Procedures p Laparoscopic Appendectomy(Not Applicable) - Michele Delacruz MD, FACS Ordered Studies 06/13/22 16:03 CT abd pelvis IV con only Stat Hospital Course (1) Appendicitis: This is a 47y F with a history of aborted appendectomy for appendicitis at [facility] who was sent to the ER as recommended by [facility] after her outpatient visit on 06/13/22 with ongoing pain despite prolonged course of po abx. CT scan showed findings concerning for appendicitis, no abscess. She was admitted under surgery and started on IV abx and kept NPO with IVF. On 06/14 she went to the OR with Dr. Delacruz/Dr. Myers for a laparoscopic appendectomy. The patient tolerated the procedure well, see op note for full details. The patient recovered in the PACU and transferred back to the med/surg floor in stable condition on IV abx and with ALBERTO drain. Her diet was slowly advanced from clear liquids to low fiber as her symptoms improved and started having + bowel function. She remained on IV abx throughout her hospitalization and transitioned to po upon discharge. Her ALBERTO drain remained serosang and was removed prior to dispo. Pain was managed with IV meds that were converted to PO as her diet was advanced. Surgical incisions remained c/d/i. On 06/18 the patient was deemed stable for discharge to home. Plans to follow up in clinic with Dr. Delacruz in 1-2 weeks Total Time Total Time Spent Total Time Spent (In Minutes): 15 Discharge Plan Discharge Items Patient Disposition: Home - Self-Care Reason For Visit: TROUBLE WITH APPENDIX Discharge Diagnosis: appendectomy Activity: Per Instructions section Activity Comment: light activity for 4 weeks Lifting: No more than 10 pounds Bathing Comment: may shower; no soaking in tubs/pools Sexual Activity: When tolerated Exercise/Sports: Wait until after follow-up appointment Exercise Comment: wait 4 weeks Driving/Machine Use: wait until cleared by surgeon; no driving while on narcotics Non-emergency contact: Surgeon Call non-emergency contact if: you have any medication questions, your symptoms worsen, your pain is not controlled, your pain is concerning for you, you have a fever, your temperature is above 101.5, your wound has increased redness, your wound has increased drainage and your wound pain has increased Follow-up/Referrals: Michele Delacruz MD, FACS [Physician] - 06/25/22 9:00 am Varinder Yusuf MD [Primary Care Provider] - Diet: Low Fiber Addtl Attending Provider Instructions: SPECIAL CARE INSTRUCTIONS: * Cover incisions and change daily for comfort/drainage. * May use ibuprofen for pain as tolerated. * Expect some swelling and bruising. Call your doctor if: * Temperature above 101 degrees * Pain not relieved by pain medicine ordered * There is increased drainage or redness from any incision * You have any unanswered questions or concerns [phone]. FOLLOW UP VISIT: If not already scheduled, please call the office for a follow-up visit. OFFICE PHONE NUMBER: Dr. Delacruz Office In 2 weeks for suture removal Pending Studies at Discharge: Yes Studies:: surgical pathology Stand-Alone Forms: [facility] [employer], Smoking Cessation Medications and DC Order Prescriptions: New oxycodone-acetaminophen [Percocet] 5-325 mg tablet 1 - 2 tab PO .q4-6h PRN (Reason: pain, for initial therapy, max 6 tabs per day) Qty: 15 0RF amoxicillin-pot clavulanate 875-125 mg tablet 1 tab PO Q12H Qty: 14 0RF Continued clotrimazole 10 mg ashlee 10 mg PO TID fluconazole 150 mg tablet 150 mg PO DIRECTED ondansetron HCl 4 mg tablet 4 mg PO Q8H PRN (Reason: NAUSEA/VOMITING) omeprazole 40 mg capsule,delayed release(DR/EC) 40 mg PO DAILYBB phentermine 30 mg capsule 30 mg PO QAM ketorolac 10 mg tablet 10 mg PO QID PRN (Reason: Pain) escitalopram oxalate 5 mg tablet 5 mg PO DAILY Mirena 20 mcg/24 hours (8 yrs) 52 mg Intrauterine Device 20 mcg INTRAUTERINE CONTINOUS Discontinued metronidazole 500 mg tablet 500 mg PO TID Qty: 21 0RF Rx Instructions: STARTED 06/07/22 FOR 7 DAYS. ciprofloxacin HCl [Cipro] 500 mg tablet 500 mg PO BID Qty: 14 0RF Rx Instructions: STARTED 06/07/22 FOR 7 DAYS Discharge Orders: Discharge Order (Routine); Ordered 06/18/22 Ordered By: Barbie Cadena Admission Data Admit Date/Time: 06/15/22 11:52 Attending Provider: Michele Delacruz Admit Provider: Michele Delacruz Primary Care Provider: Varinder Yusuf Other Interventions: Discharge Summary Assessment (RN) Last Done: 06/18/22 10:27 Coding Level of Care Code D/C DAY MANAGEMENT <30 MINS Diagnoses Appendicitis K37
== END 2022-06-18 11:05 | disposition home or self-care (01) | DRG 343 ==
LOC: 3N 15:24 → ED 15:24 → 3N 19:51
DX: K35.80 Unspecified acute appendicitis; Z98.890 Other specified postprocedural states